=== PATIENT | female | born 1970 | race Caucasian/White ===

== ENCOUNTER → 2023-09-26 15:45 | Outpatient (REF) | payer BC, SELFPAY | LOC: WDC 15:45 | PROVIDERS: ATTENDING PHYSICIAN Obstetrics & Gynecology Gynecology; FAMILY PHYSICIAN Family Medicine | DX: Z12.31 Encounter for screening mammogram for malignant neoplasm of breast (principal) | CPT/HCPCS: 77063; 77067 ==

== ENCOUNTER → 2023-11-08 06:33 | Day surgery (SDC) | payer BC, SELFPAY | LOC: GI 06:33 | PROVIDERS: ATTENDING PHYSICIAN Internal Medicine Gastroenterology | DX: K20.90 Esophagitis, unspecified without bleeding (principal); K22.89 Other specified disease of esophagus; K22.2 Esophageal obstruction; K44.9 Diaphragmatic hernia without obstruction or gangrene; K31.7 Polyp of stomach and duodenum; R13.10 Dysphagia, unspecified; R12 Heartburn; Z87.19 Personal history of other diseases of the digestive system | CPT/HCPCS: 43239; 88305; 88312 ==

== ENCOUNTER → 2024-07-07 06:54 | Outpatient (REF) | payer BC, SELFPAY | LOC: HWRAD 06:54 | PROVIDERS: ATTENDING PHYSICIAN Physician Assistant; FAMILY PHYSICIAN Family Medicine | DX: R10.11 Right upper quadrant pain (principal) | CPT/HCPCS: 76700 ==

== ENCOUNTER → 2025-03-03 16:18 | Outpatient (REF) | payer BC, SELFPAY | LOC: RAD 16:18 | PROVIDERS: ATTENDING PHYSICIAN Family Medicine | DX: M25.461 Effusion, right knee (principal) | CPT/HCPCS: 73564 ==

== ENCOUNTER → 2025-03-30 14:34 | Outpatient (REF) | payer BC, SELFPAY | LOC: RAD 14:34 | PROVIDERS: ATTENDING PHYSICIAN Nurse Practitioner Family; FAMILY PHYSICIAN Family Medicine | DX: M79.671 Pain in right foot (principal) | CPT/HCPCS: 73630 ==

== ENCOUNTER → 2025-08-06 10:43 | Outpatient (REF) | payer BC, SELFPAY | LOC: RAD 10:43 | PROVIDERS: ATTENDING PHYSICIAN Physician Assistant; FAMILY PHYSICIAN Family Medicine | DX: R04.2 Hemoptysis (principal); R05.1 Acute cough; M54.9 Dorsalgia, unspecified | CPT/HCPCS: 71046 ==